=== PATIENT | male | born 1945 | race Caucasian/White ===

== ENCOUNTER → 2016-12-24 | Outpatient (CLI) | payer MEDICARE, BC ==
[~2016-12-24] MED LIST: ALEVE PO; ANTIVERT PO; ASPIRIN PO; ASPIRIN81 M1 PO; AUGMENTIN875 MG PO; CARAFATE PO; CARVEDILOL3.125 MG PO; CERTAGEN PO; DILTIAZEM ER180 M1 PO; DOXYCYCLINE150 MG PO; DYAZIDE 371 CAP 37.5 PO; FLONASE 0.05% N16 G1; KLOR-CON PO; LAMISIL PO; LIPITOR PO; LIPITOR20 MG PO; LISINOPRIL PO; LISINOPRIL20 MG PO; LORTAB 7.5-5001 TAB PO; MAXIDE; NEXIUM PO; PROTONIX PO; VICODIN PO
--- NOTE | ~2016-12-24 | MR113 ---
[facility] A Service of [facility] RADIOLOGY TEXT RESULTS PATIENT: SHARLENE SCHAFFER JR [facility] 41 UNIT #: [id number] AGE: [address]: Anastacia Sawant APRN SEX: M ORDER DR: [id number] [facility] [address] [place], [place] [address] [id number] O MR#: [id number] Acc #: [id number] NAME: SHARLENE SCHAFFER. : 1945 SEX: M STUDY DATE/TIME: 12/24/2016 12:58 UNIT: [facility] ROOM: STUDY DESCRIPTION: MR Lumbar Wo Contrast Attending Physician: Anastacia Sawnat A.P.R.N. Referring Physician: Anastacia Sawant A.P.R.N. Ordering Physician: Anastacia Sawant A.P.R.N. Primary Care Physician: Anastaica Sawant A.P.R.N. MRI CENTER REPORT This report is preliminary unless electronic signature is present. EXAM MRI of the lumbar spine without contrast dated 12/24/2016. COMPARISON CT abdomen and pelvis without contrast dated 06/27/2015. COMPARISON STUDIES No prior dedicated lumbar spine studies are available. HISTORY Injured lower back while lifting weights on October 2016. Low back pain has worsened and now there is pain in the right bile duct region and right leg extending all the way to the ankle. History of prostate cancer diagnosed 10 years ago. TECHNIQUE Multisequence multiplanar imaging of the lumbar spine was obtained without contrast. FINDINGS Vertebral body heights and alignment are preserved. Degenerative disc disease is seen at multiple levels. Conus terminates at the inferior L1, close to L1-L2 disc. Signal of conus and cauda equina are within normal limits. L1-L2: Concentric disc bulge without canal stenosis or neural foraminal narrowing. L2-L3: Concentric disc bulge with borderline-sized canal and mild bilateral facet changes, particularly in the right. No neural foraminal narrowing. L3-L4: Concentric disc bulge with borderline size to mild canal stenosis [facility] A Service of [facility] RADIOLOGY TEXT RESULTS PATIENT: SHARLENE SCHAFFER JR LOCATION: [facility] : 41 UNIT #: [id number] AGE: [address]: Anastacia Sawant APRN SEX: M ORDER DR: without neural foraminal narrowing. Minimal bilateral facet change. L4-L5: Significant disc herniation is noted at the level of L5 which could be related to inferior migration of a large disc extrusion from L4-L5 or superior migration from L5-S1 level. Former is slightly favored based on the sagittal images. It is noted in the right susippx-kg-drjmhxnkeefq region and it measures 1.3 x 1.5 x 2.6 cm with severe impingement on the right L5 nerve root in the right lateral recess of L5. Associated nhcc-wr-pkplmgnf canal stenosis, dafhuzzz-wl-xsxjuk right lateral recess stenosis and mild bilateral neural foraminal narrowing are noted with mild bilateral facet changes. Moderate concentric disc bulge with right central to subarticular disc extrusion, as described above. L5-S1: Concentric disc bulge with mild bilateral facet changes. No significant canal stenosis or neural foraminal narrowing. IMPRESSION 1. Degenerative changes are worse at L4-5 with the right central to subarticular disc extrusion with inferior migration of 2.6 cm. It causes bzai-fh-btxzmqrv canal stenosis and severe right lateral recess stenosis with impingement of right L5 nerve root. It is probably an extrusion with inferior migration from L4-L5, rather than the superior migration from L5-S1 levels, though both are in the differential consideration. Dictated by... Swati aSldana M.D. THIS IS AN ELECTRONICALLY VERIFIED REPORT Swati Saldana M.D. at 12/30/2016 11:48 AM CPR/pcl TD: 12/24/2016 17:06 JOB #: [id number] MRI [facility]ENTER REPORT Page 1 of 1 COPY
== END | disposition home or self-care (01) ==
LOC: CMRI 12:32
DX: M54.5 Low back pain (principal)
CPT/HCPCS: 72148